=== PATIENT | female | born 1990 | race Two or more races ===

== ENCOUNTER 2021-02-18 08:43 | Emergency (ER) | payer MEDICAID ==
[~2021-02-18] VITALS: Ht 170.2 cm; Wt 79.1 kg
[2021-02-18 11:40] VITALS: BP 110/80
== END 2021-02-18 11:41 | disposition home or self-care (01) ==
LOC: EMS 08:43
DX: O20.0 Threatened abortion (principal); Z3A.01 Less than 8 weeks gestation of pregnancy
CPT/HCPCS: 76801; 76817; 84702; 86901; 99284